=== PATIENT | female | born 1970 | race Caucasian/White ===

== ENCOUNTER 2017-06-07 11:30 | Emergency (ER) | payer OTHER ==
[~2017-06-07] VITALS: Ht 172.7 cm; Wt 93.9 kg
[2017-06-07 13:45] LABS: HEMATOCRIT 27.9 % (36.0-46.0); MCH 23.6 PG (29.0-34.0); MCHC 30.8 G/DL (30.0-36.0); MCV 76.6 FL (83-99); MEAN PLAT.VOLUME 10.1 uM^3 (9.5-12.4); PLATELET COUNT 260 K/uL (156-360); RBC DIS.WIDTH-CV 16.9 % (11.8-14.6); RBC DIS.WIDTH-SD 47.4 % (39-53); RED BLOOD COUNT 3.64 M/uL (3.80-5.20); WHITE BLOOD COUNT 5.6 K/uL (4.1-10.2)
[2017-06-07 13:56] LABS: CHLORIDE 107 mEq/L (99-109); POTASSIUM 4.3 mEq/L (3.7-5.4); SODIUM 139 mEq/L (136-147)
[2017-06-07 13:58] LABS: GLUCOSE 95 mg/dL (70-99)
[2017-06-07 13:59] LABS: ANION GAP 9 MEQ/L (2-14)
[2017-06-07 14:00] LABS: TOTAL BILIRUBIN 0.2 mg/dL (0.0-1.0)
[2017-06-07 14:02] LABS: ALKALINE PHOSPHATASE 50 IU/L (3-129); GFR ESTIMATE (CALCULATED) > 59 mL/min/
[2017-06-07 14:03] LABS: UREA NITROGEN (BUN) 10 mg/dL (9-23)
[2017-06-07 14:32] LABS: QUANTITATIVE HCG < 4.0 MIU/ML
[2017-06-07 14:38] LABS: ADD MIUA? YES; BILIRUBIN NEGATIVE; BLOOD NEGATIVE; COLOR YELLOW ((YELLOW)); GLUCOSE (STRIP) NEGATIVE; KETONES NEGATIVE; LEUKOCYTES TRACE; NITRITE NEGATIVE; PROTEIN (STRIP) NEGATIVE; SPECIFIC GRAVITY 1.015 (1.000-1.030); UROBILINOGEN 0.2 MG/DL (0.2-1.0)
[2017-06-07 14:41] LABS: BACTERIA RARE /HPF; EPITHELIAL CELLS RARE /HPF; MUCUS NONE SEEN /LPF; RED BLOOD CELLS 0-5 /HPF (0-5); WHITE BLOOD CELLS 0-5 /HPF (0-5)
[2017-06-07] MEDS ORDERED: TRAMADOL HCL50 MG PO (15:30)
[2017-06-07] MEDS ORDERED: DOXYCYCLINE HY100 MG PO (15:30)
[2017-06-07 16:03] VITALS: BP 116/84
[2017-06-08 13:39] LABS: CHLAMYDIA TRACHOMATIS NEGATIVE; NEISSERIA GONORRHOEAE NEGATIVE
== END 2017-06-07 16:03 | disposition home or self-care (01) ==
LOC: EME 11:30
PROVIDERS: Nurse Practitioner Family
DX: N73.9 Female pelvic inflammatory disease, unspecified (principal); D64.9 Anemia, unspecified; Z98.84 Bariatric surgery status; Z87.891 Personal history of nicotine dependence
CPT/HCPCS: 80053; 81003; 84702; 85027; 87210; 87491; 87591; 99281; 99284; J0696

== ENCOUNTER 2017-06-17 13:45 | Emergency (ER) | payer OTHER ==
[~2017-06-17] VITALS: Ht 172.7 cm; Wt 95.5 kg
[~2017-06-17 13:45] MED LIST: DOXYCYCLINE HY100 MG PO; TRAMADOL HCL50 MG PO
[2017-06-17 15:07] LABS: HEMATOCRIT 29.8 % (36.0-46.0); MCH 24.2 PG (29.0-34.0); MCHC 30.9 G/DL (30.0-36.0); MCV 78.4 FL (83-99); MEAN PLAT.VOLUME 11.1 uM^3 (9.5-12.4); PLATELET COUNT 287 K/uL (156-360); RBC DIS.WIDTH-CV 17.8 % (11.8-14.6); RBC DIS.WIDTH-SD 50.5 % (39-53); WHITE BLOOD COUNT 6.4 K/uL (4.1-10.2)
[2017-06-17 15:15] LABS: CHLORIDE 107 mEq/L (99-109); POTASSIUM 3.9 mEq/L (3.7-5.4); SODIUM 138 mEq/L (136-147)
[2017-06-17 15:17] LABS: GLUCOSE 88 mg/dL (70-99)
[2017-06-17 15:19] LABS: ANION GAP 7 MEQ/L (2-14)
[2017-06-17 15:21] LABS: GFR ESTIMATE (CALCULATED) > 59 mL/min/
[2017-06-17 15:22] LABS: UREA NITROGEN (BUN) 13 mg/dL (9-23)
[2017-06-17 15:23] LABS: ADD MIUA? NO; BILIRUBIN NEGATIVE; BLOOD NEGATIVE; COLOR YELLOW ((YELLOW)); GLUCOSE (STRIP) NEGATIVE; KETONES NEGATIVE; LEUKOCYTES NEGATIVE; NITRITE NEGATIVE; PROTEIN (STRIP) NEGATIVE; SPECIFIC GRAVITY 1.004 (1.000-1.030); UROBILINOGEN 0.2 MG/DL (0.2-1.0)
[2017-06-17 15:31] LABS: QUANTITATIVE HCG < 4.0 MIU/ML
[2017-06-17 17:05] LABS: CANDIDA DNA PROBE POSITIVE; GARDNERELLA DNA PROBE NEGATIVE; INTERNAL CONTROL VALID? YES
[2017-06-17] MEDS ORDERED: MIRALAX17 GM PO (18:22)
[2017-06-17] MEDS ORDERED: TRAMADOL HCL50 MG PO (18:22)
[2017-06-17 18:35] VITALS: BP 144/82
== END 2017-06-17 18:36 | disposition home or self-care (01) ==
LOC: EME 13:45
PROVIDERS: Physician Assistant
DX: K59.00 Constipation, unspecified (principal); R10.30 Lower abdominal pain, unspecified; Z98.84 Bariatric surgery status; Z88.0 Allergy status to penicillin; Z88.8 Allergy status to other drugs, medicaments and biological substances; F17.200 Nicotine dependence, unspecified, uncomplicated
CPT/HCPCS: 74177; 76856; 80048; 81003; 84702; 85027; 87480; 87510; 87660; 99281; 99284; J7040